=== PATIENT | male | born 1990 | race Caucasian/White ===

== ENCOUNTER 2025-07-12 02:26 | Emergency (ER) | payer BC ==
[2025-07-12 03:16] LABS: Absolute Lymphocytes (CBC) 2.3 K/uL (0.7-4.9); Hematocrit 47.4 % (39.6-49.0); Hemoglobin 16.4 g/dL (13.6-17.9); MCH 29.9 pg (27.0-35.0); MCHC 34.6 g/dL (32.0-36.0); MCV 86.4 fL (80-100); MPV 8.0 fL (7.6-11.3); Nucleated RBC Absolute Count 0.0 (0-0); Nucleated Red Blood Cells % 0.0 % (0-0); RBC Red Blood Cell Count 5.49 M/uL (4.33-5.43); White Blood Count 6.70 thou/uL (4.3-10.9)
[2025-07-12 03:18] LABS: PT Prothrombin Time 11.8 SECONDS (10-13.0); Protime INR 1.05
[2025-07-12 03:34] LABS: ALT/SGPT 53 U/L (16-61); AST/SGOT 24 U/L (15-37); Albumin 3.8 g/dL (3.4-5.0); Albumin/Globulin Ratio 1.1 (1.1-1.8); Alkaline Phosphatase 70 U/L (45-117); Anion Gap 6.5 mEq/L (5.0-15.0); BUN Blood Urea Nitrogen 19 mg/dL (7-18); Globulin 3.4 g/dL (2.3-3.5); Glucose Level 97 mg/dL (74-106); Magnesium 2.1 mg/dL (1.6-2.4); NT PRO-BNP 9 pg/mL (<125); Potassium 3.5 mEq/L (3.5-5.1); Troponin High Sensitivity 5.5 pg/mL (<58.9)
[2025-07-12 03:35] LABS: Bilirubin Indirect, Calculated 0.1 mg/dL (0.2-0.8)
--- NOTE | 2025-07-12 03:55 | RAD REPORT ---
INDICATION: CHEST PAIN COMPARISON: Chest radiograph March 31, 2025 FINDINGS: Single frontal view of the chest was obtained. SUPPORT DEVICES: None HEART/MEDIASTINUM: Cardiomediastinal contours are normal. LUNGS/PLEURA: Subtle hazy interstitial opacities throughout the lungs with suspected bronchial wall t hickening. No pleural effusion or pneumothorax. OTHER: No other significant findings. IMPRESSION: Subtle hazy interstitial opacities throughout the lungs with suspected bronchial wall thickening, pos sibly related to viral bronchiolitis. Electronically signed by: Mgady Reyna DO 07/12/2025 03:16 AM CDT RP NR Due to temporary technical issues with the PACS/WritePath reporting system, reports are being rikki d by the in-house radiologist without review as a courtesy to ensure prompt reporting. The interpreting radiologist is fully responsible for the content of the report. Transcribed Date/Time: 07/12/2025 3:54 AM
[2025-07-12] MEDS ORDERED: CALCIUM CARBONATE CHEW 500MG TAB ONE (04:07)
--- NOTE | 2025-07-12 04:18 | ER ---
Nurse's Notes [facility] Name: Troy New Age: 35 yrs Sex: Male : 1990 Arrival Date: 07/12/2025 Time: 02:26 Bed IW8 Private MD: Diagnosis: Chest pain, unspecified Presentation: 07/12 02:35 Chief complaint: Patient states: I have had this chest tightness for one year, what I bm8 really need from the doctor is a note saying that I MUST have a bathtub for my personal health. 02:35 Coronavirus screen: Vaccine status: Patient reports receiving the 2nd dose of the covid bm8 vaccine. At this time, the client does not indicate any symptoms associated with coronavirus-19. Ebola Screen: Patient negative for fever greater than or equal to 101.5 degrees Fahrenheit, and additional compatible Ebola Virus Disease symptoms Patient denies exposure to infectious person. Patient denies travel to an Ebola-affected area in the 21 days before illness onset. No symptoms or risks identified at this time. Initial Sepsis Screen: Does the patient meet any 2 criteria? HR > 90 bpm. Does the patient have a suspected source of infection? No. Patient's initial sepsis screen is negative. Risk Assessment: Do you want to hurt yourself or someone else? Patient reports no desire to harm self or others. Onset of symptoms is unknown. 02:35 Method Of Arrival: Ambulatory bm8 02:35 Acuity: CARRIE 2 bm8 Triage Assessment: 02:49 General: Appears in no apparent distress. comfortable, Behavior is calm, cooperative, bm8 appropriate for age. Pain: Complains of pain in chest Pain currently is 1 out of 10 on a pain scale. EENT: No deficits noted. No signs and/or symptoms were reported regarding the EENT system. Neuro: No deficits noted. Level of Consciousness is awake, alert, obeys commands, Oriented to person, place, time, situation, Appropriate for age. Cardiovascular: Reports chest pain, palpitations, Heart tones S1 S2 present. Cardiovascular: Capillary refill < 3 seconds in bilateral fingers Patient's skin is warm and dry. Rhythm is sinus arrythmia. Respiratory: Airway is patent Respiratory effort is even, unlabored, Respiratory pattern is regular, symmetrical, Breath sounds are clear bilaterally. GI: No signs and/or symptoms were reported involving the gastrointestinal system. GI: No deficits noted. : No signs and/or symptoms were reported regarding the genitourinary system. : No deficits noted. Derm: No deficits noted. No signs and/or symptoms reported regarding the dermatologic system. Musculoskeletal: No deficits noted. No signs and/or symptoms reported regarding the musculoskeletal system. Historical: - Allergies: 02:49 No Known Allergies; bm8 - Home Meds: 02:49 None [Active]; bm8 - PMHx: 02:49 None; bm8 - PSHx: 02:49 None; bm8 - Immunization history:: Adult Immunizations up to date. - Infectious Disease History:: Denies. - Social history:: Smoking status: Patient denies any tobacco usage or history of. Patient/guardian denies using alcohol, street drugs. - Family history:: not pertinent. Screenin:51 [facility] ED Fall Risk Assessment (Adult) History of falling in the last 3 months, bm8 including since admission No falls in past 3 months (0 pts) Confusion or Disorientation No (0 pts) Intoxicated or Sedated No (0 pts) Impaired Gait No (0 pts) Mobility Assist Device Used No (0 pt) Altered Elimination No (0 pt) Score/Fall Risk Level 0 - 2 = Low Risk Oriented to surroundings, Maintained a safe environment, Educated pt \T\ family on fall prevention, incl call for assistance when getting out of bed, Assessed \T\ reinforced patient's understanding of fall precautions, Hourly rounding (assess needs \T\ fall precautionary measures) done, Used ambulatory aids as needed (educated on \T\ assisted with), Used gait belt as appropriate. Abuse screen: Denies threats or abuse. Nutritional screening: No deficits noted. Tuberculosis screening: No symptoms or risk factors identified. Assessment: 02:51 Reassessment: see triage assessment. bm8 02:51 Pain: Pain does not radiate. Pain began years ago. bm8 03:51 Reassessment: Patient appears in no apparent distress at this time. Patient and/or bm8 family updated on plan of care and expected duration. Pain level reassessed. Patient is alert, oriented x 3, equal unlabored respirations, skin warm/dry/pink. pt is resting with eyes closed breathing is even unlabored with symmetrical rise and fall of chest. 04:17 Reassessment: Patient appears in no apparent distress at this time. Patient and/or bm8 family updated on plan of care and expected duration. Pain level reassessed. Patient is alert, oriented x 3, equal unlabored respirations, skin warm/dry/pink. Patient denies pain at this time. Patient states feeling better. Patient states symptoms have improved. Vital Signs: 02:35 BP 141 / 96; Pulse 92; Resp 18; Temp 98.8; Pulse Ox 96% ; Weight 92.99 kg; Height 5 ft. bm8 10 in. ; Pain 1/10; 03:39 BP 127 / 77; Pulse 72; Resp 16; Pulse Ox 94% ; bm8 04:17 BP 121 / 74; Pulse 73; Resp 17; Temp 98.7; Pulse Ox 100% ; Pain 0/10; bm8 02:35 Body Mass Index 29.41 (92.99 kg, 177.8 cm) bm8 02:35 Pain Scale: Adult bm8 04:17 Pain Scale: Adult bm8 Orrick Coma Score: 02:51 Eye Response: spontaneous(4). Motor Response: obeys commands(6). Verbal Response: bm8 oriented(5). Total: 15. 03:51 Eye Response: spontaneous(4). Motor Response: obeys commands(6). Verbal Response: bm8 oriented(5). Total: 15. 04:17 Eye Response: spontaneous(4). Motor Response: obeys commands(6). Verbal Response: bm8 oriented(5). Total: 15. 07:15 Eye Response: spontaneous(4). Motor Response: obeys commands(6). Verbal Response: sp4 oriented(5). Total: 15. ED Course: 02:33 Patient arrived in ED. gm2 02:38 Navi Lutz, RN is Primary Nurse. bm8 02:46 Bakari Enriquez MD is Attending Physician. sp4 02:49 Triage completed. bm8 02:49 Arm band placed on right wrist. bm8 02:51 Patient has correct armband on for positive identification. Placed in gown. Bed in low bm8 position. Call light in reach. Side rails up X 1. Client placed on continuous cardiac and pulse oximetry monitoring. NIBP monitoring applied. certified art therapist on. Pulse ox on. NIBP on. Door closed. Noise minimized. Pillow given. Verbal reassurance given. Head of bed lowered. 02:51 No provider procedures requiring assistance completed. Initial lab(s) drawn, by ED bm8 staff, sent to lab. EKG done, by ED staff, reviewed by Bakari Enriquez MD. Inserted saline lock: 20 gauge in right antecubital area, using aseptic technique. Blood collected. Flushed with 10 mL NS. Patient maintains SpO2 saturation greater than 95% on room air. 02:57 Basic Metabolic Panel Sent. bm8 02:57 CBC with Diff Sent. bm8 02:57 LFT's Sent. bm8 02:57 Magnesium Sent. bm8 02:57 NT PRO-BNP Sent. bm8 02:57 PT-INR Sent. bm8 02:57 Troponin HS Sent. bm8 03:05 XRAY Chest (1 view) In Process Unspecified. EDCA 04:17 Noah Conteh MD is Referral Physician. sp4 04:17 Provided Education on: post er care. bm8 04:17 IV discontinued, intact, bleeding controlled, No redness/swelling at site. Pressure bm8 dressing applied. Administered Medications: 04:17 Drug: Tums PO Chewable Tablet 800 mg PO once Route: PO; bm8 04:17 Follow up: Response: No adverse reaction bm8 Medication: 02:51 VIS not applicable for this client. bm8 Outcome: 04:17 Discharged to home ambulatory, bm8 04:17 Condition: stable 04:17 Discharge instructions given to patient, family, Instructed on discharge instructions, follow up and referral plans. no drinking with medication, no driving heavy equipment, medication usage, safety practices, Demonstrated understanding of instructions, follow-up care, medications, 04:18 Discharge ordered by . sp4 04:21 Patient left the ED. jj7 Signatures: Dispatcher [employer] EDCA Anahi Engel RN RN jBakari Roberts MD MD sp4 [facility] Navi Lutz RN RN bm8 Corrections: (The following items were deleted from the chart) 04:42 04:41 Patient left the ED. jj7 jj7
--- NOTE | 2025-07-12 04:18 | EDPHYS ---
Physician Documentation [facility] Name: Troy New Age: 35 yrs Sex: Male : 1990 Arrival Date: 07/12/2025 Time: 02:26 Bed IW8 Private MD: ED Physician Bakari Enriquez HPI: 07/12 02:46 This 35 yrs old Male presents to ER via Unassigned with complaints of Chest sp4 Tightness, muscle spams. 07:08 35-year-old male presents with 1 year of chest tightness.. sp4 Historical: - Allergies: 02:49 No Known Allergies; bm8 - Home Meds: 02:49 None [Active]; bm8 - PMHx: 02:49 None; bm8 - PSHx: 02:49 None; bm8 - Immunization history:: Adult Immunizations up to date. - Infectious Disease History:: Denies. - Social history:: Smoking status: Patient denies any tobacco usage or history of. Patient/guardian denies using alcohol, street drugs. - Family history:: not pertinent. ROS: 07:15 Constitutional: Negative for fever, chills, and weight loss, positive for chest sp4 tightness 07:15 All other systems are negative, Exam: 07:15 Constitutional: This is a well developed, well nourished patient who is awake, alert, sp4 and in no acute distress. Head/Face: Normocephalic, atraumatic. Eyes: Pupils equal round and reactive to light, extra-ocular motions intact. Lids and lashes normal. Conjunctiva and sclera are not injected. Cornea within normal limits. Periorbital areas with no swelling, redness, or edema. ENT: Nares patent. No nasal discharge, no septal abnormalities noted. Tympanic membranes are normal and external auditory canals are clear. Oropharynx with no redness, swelling, or masses, exudates, or evidence of obstruction, uvula midline. Mucous membranes moist. Neck: Trachea midline, no thyromegaly or masses palpated, and no cervical lymphadenopathy. Supple, full range of motion without nuchal rigidity, or vertebral point tenderness. Chest/axilla: Normal chest wall appearance and motion. Nontender with no deformity. No lesions are appreciated. Cardiovascular: Regular rate and rhythm with a normal S1 and S2. No gallops, murmurs, or rubs. No pulse deficits. Respiratory: Lungs have equal breath sounds bilaterally, clear to auscultation and percussion. No rales, rhonchi or wheezes noted. No increased work of breathing, no retractions or nasal flaring. Abdomen/GI: Soft, with normal bowel sounds. No distension or tympany. No guarding or rebound. No evidence of tenderness throughout. Back: No spinal tenderness. No costovertebral tenderness. Skin: Warm, dry with normal turgor. Normal color with no rashes, no lesions, and no evidence of cellulitis. MS/ Extremity: Pulses equal, no cyanosis. Neurovascular intact. Full, normal range of motion. Neuro: Awake and alert, GCS 15, oriented to person, place, time, and situation. Cranial nerves II-XII grossly intact. Motor strength 5/5 in all extremities. Sensory grossly intact. Psych: Awake, alert, with orientation to person, place and time. Behavior, mood, and affect are within normal limits 07:15 ECG was reviewed by the Attending Physician. EKG at 0 244 normal sinus rhythm with sinus arrhythmia rate 84 otherwise normal Vital Signs: 02:35 BP 141 / 96; Pulse 92; Resp 18; Temp 98.8; Pulse Ox 96% ; Weight 92.99 kg; Height 5 ft. bm8 10 in. ; Pain 1/10; 03:39 BP 127 / 77; Pulse 72; Resp 16; Pulse Ox 94% ; bm8 04:17 BP 121 / 74; Pulse 73; Resp 17; Temp 98.7; Pulse Ox 100% ; Pain 0/10; bm8 02:35 Body Mass Index 29.41 (92.99 kg, 177.8 cm) bm8 02:35 Pain Scale: Adult bm8 04:17 Pain Scale: Adult bm8 Wale Coma Score: 02:51 Eye Response: spontaneous(4). Motor Response: obeys commands(6). Verbal Response: bm8 oriented(5). Total: 15. 03:51 Eye Response: spontaneous(4). Motor Response: obeys commands(6). Verbal Response: bm8 oriented(5). Total: 15. 04:17 Eye Response: spontaneous(4). Motor Response: obeys commands(6). Verbal Response: bm8 oriented(5). Total: 15. 07:15 Eye Response: spontaneous(4). Motor Response: obeys commands(6). Verbal Response: sp4 oriented(5). Total: 15. MDM: 02:44 Differential diagnosis: acute pericarditis, anxiety, chest wall pain, costochondritis, sp4 esophagitis, gastritis. HEART Score: History: Slightly Suspicious (0), ECG: Normal (0), Age: < or = 45 years (0), Risk Factors: No Risk Factors Known (0), Troponin: < or = 1 x Normal Limit (0), Total Score = 0. 02:46 Medical Screening Exam initiated sp4 07:19 Data reviewed: vital signs, nurses notes, lab test result(s), radiologic studies, plain sp4 films. 07:19 ED course: Chest x-ray consistent with viral bronchiolitis.. ED course: INDICATION: sp4 CHEST PAIN COMPARISON: Chest radiograph March 31, 2025 FINDINGS: Single frontal view of the chest was obtained. SUPPORT DEVICES: None HEART/MEDIASTINUM: Cardiomediastinal contours are normal. LUNGS/PLEURA: Subtle hazy interstitial opacities throughout the lungs with suspected bronchial wall thickening. No pleural effusion or pneumothorax. OTHER: No other significant findings. IMPRESSION: Subtle hazy interstitial opacities throughout the lungs with suspected bronchial wall thickening, possibly related to viral bronchiolitis.. 07/12 02:46 Order name: Basic Metabolic Panel; Complete Time: 04:16 sp4 07/12 02:46 Order name: CBC with Diff; Complete Time: 04:16 4 07/12 02:46 Order name: LFT's; Complete Time: 04:16 sp4 07/12 02:46 Order name: Magnesium; Complete Time: 04:16 sp4 07/12 02:46 Order name: NT PRO-BNP; Complete Time: 04:16 sp4 07/12 02:46 Order name: PT-INR; Complete Time: 04:16 sp4 07/12 02:46 Order name: Troponin HS; Complete Time: 04:16 4 07/12 02:46 Order name: XRAY Chest (1 view) 4 07/12 02:46 Order name: EKG; Complete Time: 02:46 4 07/12 02:46 Order name: Cardiac monitoring; Complete Time: 02:47 sp4 07/12 02:46 Order name: EKG - Nurse/Tech; Complete Time: 02:47 sp4 07/12 02:46 Order name: IV Saline Lock; Complete Time: 02:47 sp4 07/12 02:46 Order name: Labs collected and sent; Complete Time: 02: sp4 07/12 02:46 Order name: O2 Per Protocol; Complete Time: 02:47 sp4 07/12 02:46 Order name: O2 Sat Monitoring; Complete Time: : sp4 EC:44 Rate is 84 beats/min. Rhythm is regular, Sinus arrythmia. QRS [place] is Normal. [place] sp4 interval is normal. QRS interval is normal. QT interval is normal. No Q waves. T waves are Normal. No ST changes noted. Clinical impression: No evidence of ischemia. Interpreted by me. Reviewed by me. Administered Medications: 04:17 Drug: Tums PO Chewable Tablet 800 mg PO once Route: PO; bm8 04:17 Follow up: Response: No adverse reaction bm8 Disposition: 07:20 Chart complete. sp4 Disposition Summary: 07/12/25 04:18 Discharge Ordered Notes: Location: Home sp4 Problem: new sp4 Symptoms: have improved sp4 Condition: Stable sp4 Diagnosis - Chest pain, unspecified sp4 Followup: sp4 - With: Noah Conteh MD - When: 7 - 10 days - Reason: Recheck today's complaints Discharge Instructions: - Discharge Summary Sheet sp4 - Nonspecific Chest Pain, Adult, [id number] sp4 Forms: - Patient Portal Instructions sp4 Signatures: Dispatcher [employer] Bakari Reyna MD MD sp4 Navi Lutz, RN RN bm8
[2025-07-12 09:25] VITALS: BP 121/74; TEMP 98.7; O2SAT 100
== END 2025-07-12 04:41 | disposition home or self-care (01) ==
LOC: ER 02:26
DX: R07.9 Chest pain, unspecified (principal)
CPT/HCPCS: 36415; 71045; 80048; 80076; 83735; 83880; 84484; 85025; 85610; 93005; 99285